=== PATIENT | male | born 1965 | race Two or more races ===

== ENCOUNTER 2023-01-24 22:33 | Emergency (ER) | payer BC ==
[~2023-01-24] VITALS: Ht 165.1 cm; Wt 95.3 kg
--- NOTE | 2023-01-24 23:01 | NUR ---
Patient placed in room 1B. Family member at bedside.
--- NOTE | 2023-01-24 23:06 | NUR ---
Dr. Tristan evaluating patient at bedside. MSE in progress.
[2023-01-24] MEDS ORDERED: CEFAZOLIN 1 G in IV DEXTROSE 5% 50 ML IV ONE (23:15)
[2023-01-24] MEDS ORDERED: HYDROCODONE/APAP 5-325MG TABLET PO ONE (23:15)
[2023-01-24] MEDS ORDERED: CEFAZOLIN 1 G VIAL ONE (23:30)
[2023-01-24] MEDS ORDERED: HYDROCODONE/APAP 5-325MG TABLET ONE (23:31)
[2023-01-24 23:33] LABS: HEMATOCRIT 38.9 % (36.7-47.1); MEAN CORPUSCULAR HEMOGLOBIN 30.3 uug (23.8-33.4); MEAN CORPUSCULAR VOLUME 90.5 fL (73.0-96.2); PLATELET COUNT (AUTO) 202 K/uL (152-348)
[2023-01-24 23:40] LABS: POTASSIUM 3.7 mmol/L (3.5-5.1)
[2023-01-24 23:46] LABS: BILIRUBIN,DIRECT 0.1 mg/dL (0.0-0.2); BILIRUBIN,TOTAL 0.3 mg/dL (0.2-1.0); TOTAL PROTEIN, SERUM 7.2 g/dL (6.4-8.2)
[2023-01-25] MEDS ORDERED: ACET1TAB23 PO (00:20)
[2023-01-25] MEDS ORDERED: CEPH500C2 PO (00:20)
[2023-01-25] MEDS ORDERED: SULF1TAB48 PO (00:20)
[2023-01-25] MEDS ORDERED: SULFAMETH/TRIMETH 800/160 MG TABLET PO ONE (00:30)
[2023-01-25] MEDS ORDERED: SULFAMETH/TRIMETH 800/160 MG TABLET ONE (00:33)
--- NOTE | 2023-01-25 00:38 | NUR ---
IV removed. Catheter intact and site benign. Pressure and 4x4 gauze applied to site. No bleeding noted.
[2023-01-25 00:42] VITALS: BP 150/75
--- NOTE | 2023-01-25 00:42 | NUR ---
Patient discharged to home in stable condition with taking patient home. Written and verbal after care instructions given. Patient verbalizes understanding of instructions. Stressed follow up or return to ER for worsening s/s.
[2023-01-25 00:59] LABS: *BILIRUBIN,URIN NEGATIVE (NEGATIVE); *CLARITY,URINE CLEAR (CLEAR); *COLOR,URINE YELLOW (YELLOW); *KETONES,URINE NEGATIVE (NEGATIVE); *UROBILINOGEN,URINE 0.2 E.U./dl (NORMAL); LEUKOCYTE ESTERASE ,URINE NEGATIVE (NEGATIVE); NITRITE, URINE NEGATIVE (NEGATIVE); UGLUCOSE NEGATIVE (NEGATIVE)
[2023-01-25 01:00] LABS: *BLOOD, URINE NEGATIVE (NEGATIVE)
== END 2023-01-25 00:43 | disposition home or self-care (01) ==
LOC: ER 22:33
DX: L03.116 Cellulitis of left lower limb (principal); E88.81 Metabolic syndrome and other insulin resistance; Z79.899 Other long term (current) drug therapy
CPT/HCPCS: 99284; 96365; 80076; 80048; 83036; 85025; 87040; 36415; 81003; J0690; A4663